=== PATIENT | female | born 1930 | race Caucasian/White ===

== ENCOUNTER 2018-06-08 08:33 | Day surgery (SDC) | payer OTHER ==
[~2018-06-08] VITALS: Ht 160 cm; Wt 69.5 kg
[~2018-06-08 08:33] MED LIST: ACEBUTCAFT PO; ACET325 PO; ALLO100; ALLO100 PO; AMLO5 PO; AMOCLA500; ASPI81EC; AZIT250 PO; Apap-Butalbita1 EACH PO; BISA10S PR; CALC.25 PO; CALCIUM +D PO; CIPR500 PO; CLIN300 PO; CODACE30; CVS DISPOSABLE399 ML PR; Citrate Of Mag300 ML PO; DONE10 PO; Dulcolax5 MG PO; FAMO20; FOSI10 PO; FURO40 PO; HYDACE5; HYDACE5 PO; HYDACE5325 PO; HYDMOR2 PO; HYDR1TAB94 PO; IRON150C PO; LEVFLO250 PO; LEVFLO500; LEVFLO500 PO; LISI5; LOVA40; LOVA40 PO; METO100; METO100 PO; METO100ER; METO25 PO; METO25ER PO; METO50; METR500; METR500 PO; MULVITMINE PO; Milk Of Ma400 MG/5 M PO; Multivitamin1 EAC1 PO; NAPR220; NAPR220 PO; NITR100CA PO; OMEP20ER; OMEP20ER PO; OXYACE5T PO; PANT40; PROACE100 PO; PROM25 PO; Prilosec Otc20 MG PO; RXCLIN PO; RXHYDMOR2 PO; RXOXYACE PO; RXPROACE PO; SIMV20 PO; SIMV40 PO; SPIR25; SULTRISS PO; TRAM50 PO; TRAZ50 PO; Ultram50 MG PO; Vitamin C100 M1 PO
[2018-06-08] MEDS ORDERED: LORA.5 PO (09:10)
[2018-06-08] MEDS ORDERED: MIRT15 PO (09:11)
[2018-06-08] MEDS ORDERED: Rena-Vite Tabl0.8 MG PO (09:13)
[2018-06-08] MEDS ORDERED: TRAZ50 PO (09:14)
[2018-06-08] MEDS ORDERED: FERRIC CITRATE210 MG PO (09:17)
[2018-06-08] MEDS ORDERED: GAVILAX17 GM PO (09:19)
--- NOTE | 2018-06-08 10:50 | NUR ---
PT WITH AGE-APPROPRIATE MOBILITY BUT [place] AND SOMEWHAT POOR HISTORIAN REGARDING OWN HEALTH. DOES NOT KNOW CURRENT MEDICATIONS OR DOSES. INFORMATION OBTAINED FROM ACCOMPANYING RECORDS.
--- NOTE | 2018-06-08 12:09 | NUR ---
PT AND FAMILY VERBALIZED UNDERSTANDING OF WRITTEN AND VERBAL D/C INST. IV REMOVED. PT TAKEN OUT OF THE HRT CENTER VIA W/C.
[2018-06-27] MEDS ORDERED: METO25 PO (10:26)
[2018-06-27] MEDS ORDERED: AURYXIA PO (10:27)
== END 2018-06-08 12:05 | disposition home or self-care (01) ==
LOC: MHTC 08:33
DX: I12.0 Hypertensive chronic kidney disease with stage 5 chronic kidney disease or end stage renal disease (principal); N18.6 End stage renal disease; Z99.2 Dependence on renal dialysis; E78.5 Hyperlipidemia, unspecified; I25.10 Atherosclerotic heart disease of native coronary artery without angina pectoris; Z88.0 Allergy status to penicillin; Z88.2 Allergy status to sulfonamides
CPT/HCPCS: 36010; 36581; 36590; 37246; 37248; 75827; 77001; 99152; C1725; C1750; C1769; J0690; J1644; J2250; J3010; J7040; Q9967

== ENCOUNTER 2018-06-08 18:08 | Emergency (ER) | payer OTHER ==
[~2018-06-08] VITALS: Ht 157.5 cm; Wt 56.7 kg
[~2018-06-08 18:08] MED LIST changes: +FERRIC CITRATE210 MG PO; +GAVILAX17 GM PO; +LORA.5 PO; +MIRT15 PO; +Rena-Vite Tabl0.8 MG PO
[2018-06-27] MEDS ORDERED: METO25 PO (10:26)
[2018-06-27] MEDS ORDERED: AURYXIA PO (10:27)
== END 2018-06-08 19:20 | disposition home or self-care (01) ==
LOC: ER 18:08
DX: T82.838A Hemorrhage due to vascular prosthetic devices, implants and grafts, initial encounter (principal); F03.90 Unspecified dementia, unspecified severity, without behavioral disturbance, psychotic disturbance, mood disturbance, and anxiety
CPT/HCPCS: 99283

== ENCOUNTER 2018-06-08 23:42 | Emergency (ER) | payer OTHER ==
[~2018-06-08] VITALS: Ht 160 cm; Wt 74.8 kg
[2018-06-27] MEDS ORDERED: METO25 PO (10:26)
[2018-06-27] MEDS ORDERED: AURYXIA PO (10:27)
== END 2018-06-09 02:03 | disposition home or self-care (01) ==
LOC: ER 23:42
DX: T82.838A Hemorrhage due to vascular prosthetic devices, implants and grafts, initial encounter (principal); Z88.0 Allergy status to penicillin; Z88.2 Allergy status to sulfonamides; Z88.8 Allergy status to other drugs, medicaments and biological substances; Z79.899 Other long term (current) drug therapy; I10 Essential (primary) hypertension; E78.5 Hyperlipidemia, unspecified; E03.9 Hypothyroidism, unspecified; F03.90 Unspecified dementia, unspecified severity, without behavioral disturbance, psychotic disturbance, mood disturbance, and anxiety
CPT/HCPCS: 99284

== ENCOUNTER 2018-06-27 15:02 | Day surgery (SDC) | payer OTHER ==
[~2018-06-27] VITALS: Ht 160 cm; Wt 70.4 kg
[~2018-06-27 15:02] MED LIST changes: +AURYXIA PO
--- NOTE | 2018-06-27 16:27 | NUR ---
REPORT GIVEN TO Barbara LOPEZ RN.
--- NOTE | 2018-06-29 08:27 | NUR ---
PROCEDURE COMPLETED WITHOUT KNOWN COMPLICATIONS. PT AWAKE AND APPROPRIATELY CONVERSIVE; ABLE TO STAND AND PIVOT TO OWN WHEELCHAIR WITH MINOR ASSISTANCE AND GUIDANCE (SAME BASELINE CONDITION). WAS INFORMED FROM GLORIA Anderson THAT TELEPHONE REPORT HAD BEEN CALLED TO PATIENT'S CARE FACILITY AND [facility] CALLED FOR TRANSPORTATION. IV DC'D WITH CANNULA TIP INTACT. FOLDED 2X2 GAUZE PLACED WITH COBAN WRAP. WHEELED PATIENT TO EXIT AND WAITED APPROX 5-10 MIN FOR ARRIVAL. PT WITHOUT ALTERATIONS TO CONSCIOUSNESS OR SPEECH. DISCHARGED.
== END 2018-06-27 18:00 | disposition home or self-care (01) ==
LOC: SURS 15:02 → MHTC 15:02
DX: T82.41XA Breakdown (mechanical) of vascular dialysis catheter, initial encounter (principal); N18.6 End stage renal disease; I12.0 Hypertensive chronic kidney disease with stage 5 chronic kidney disease or end stage renal disease
CPT/HCPCS: 36558; 36589; 76937; 99152; C1725; C1769; J1644; J2250; J2405; J3010; J7040

== ENCOUNTER → 2018-08-05 | Outpatient (CLI) | payer OTHER ==
[2018-08-05 19:38] LABS: Bun/Creatinine Ratio 10.6 (12.0-20.0); Calcium, Blood 10.4 mg/dL (8.5-10.1); Creatinine, Blood 6.03 mg/dL (0.40-1.00); Potassium, Blood 4.7 mmol/L (3.5-5.5)
[2018-08-05 20:45] LABS: Adenovirus Not Detected (NOT DETECT); Bordetella pertussis Not Detected (NOT DETECT); Chlamydophila pneumoniae Not Detected (NOT DETECT); Coronavirus 229E Not Detected (NOT DETECT); Coronavirus HKU1 Not Detected (NOT DETECT); Coronavirus NL63 Not Detected (NOT DETECT); Coronavirus OC43 Not Detected (NOT DETECT); Human Metapneumovirus Not Detected (NOT DETECT); Human Rhinovirus/Enterovirus Not Detected (NOT DETECT); Influenza A Not Detected (NOT DETECT); Influenza A/2009-H1 Not Detected (NOT DETECT); Influenza A/H1 Not Detected (NOT DETECT); Influenza A/H3 Detected (NOT DETECT); Influenza B Not Detected (NOT DETECT); Mycoplasma pneumoniae Not Detected (NOT DETECT); Parainfluenza Virus 1 Not Detected (NOT DETECT); Parainfluenza Virus 2 Not Detected (NOT DETECT); Parainfluenza Virus 3 Not Detected (NOT DETECT); Parainfluenza Virus 4 Not Detected (NOT DETECT); Respiratory Syncytial Virus Not Detected (NOT DETECT)
[2018-08-05 23:23] LABS: BASOPHILS ABSOLUTE AUTO 0.04 K/mm3 (0.00-0.23); BASOPHILS PERCENT AUTO 1 % (0-2); EOSINOPHILS ABSOLUTE AUTO 0.03 K/mm3 (0.00-0.68); EOSINOPHILS PERCENT AUTO 0 % (0-6); Hematocrit 34.1 % (33.0-51.0); Hemoglobin 10.9 g/dL (11.5-16.0); IMMATURE GRAN ABSOLUTE AUTO 0.03 K/mm3 (0.00-0.10); IMMATURE GRAN PERCENT AUTO 0 % (0-1); LYMPHOCYTES ABSOLUTE AUTO 1.24 K/mm3 (0.84-5.20); LYMPHOCYTES PERCENT AUTO 17 % (21-46); MONOCYTES PERCENT AUTO 25 % (4-13); Mean Corpuscular HGB 33.6 pg (26.0-34.0); Mean Corpuscular Volume 105 fL (80-100); Mean Platelet Volume 13.3 fL (9.1-12.4); NEUTROPHILS ABSOLUTE AUTO 4.05 K/mm3 (1.96-9.15); NEUTROPHILS PERCENT AUTO 56 % (41-73); Platelet Count 133 K/mm3 (150-400); RDW Coefficient Variation 13.3 % (11.7-14.2); RDW Standard Deviation 51.6 fL (35.1-46.3); Red Blood Cell Count 3.24 M/mm3 (3.80-5.20); White Blood Cell Count 7.19 K/mm3 (4.00-11.30)
== END | disposition home or self-care (01) ==
LOC: EDSTATUS 09:49 → LAB UVN 19:16
PROVIDERS: Family Medicine
DX: I12.9 Hypertensive chronic kidney disease with stage 1 through stage 4 chronic kidney disease, or unspecified chronic kidney disease (principal); N18.6 End stage renal disease; E87.5 Hyperkalemia; R50.9 Fever, unspecified; R05 Cough
CPT/HCPCS: 80048; 85025; 87486; 87581; 87633; 87798

== ENCOUNTER 2018-09-29 14:13 | Emergency (ER) | payer OTHER ==
[~2018-09-29] VITALS: Ht 167.6 cm; Wt 68.0 kg
[2018-09-29 15:09] LABS: BASOPHILS ABSOLUTE AUTO 0.04 K/mm3 (0.00-0.23); BASOPHILS PERCENT AUTO 1 % (0-2); EOSINOPHILS PERCENT AUTO 3 % (0-6); Hematocrit 36.9 % (33.0-51.0); IMMATURE GRAN ABSOLUTE AUTO 0.02 K/mm3 (0.00-0.10); IMMATURE GRAN PERCENT AUTO 0 % (0-1); LYMPHOCYTES PERCENT AUTO 21 % (21-46); MONOCYTES ABSOLUTE AUTO 0.71 K/mm3 (0.16-1.47); MONOCYTES PERCENT AUTO 9 % (4-13); Mean Corpuscular HGB 34.2 pg (26.0-34.0); Mean Corpuscular HGB Conc 32.5 g/dL (31.5-36.5); Mean Corpuscular Volume 105 fL (80-100); Mean Platelet Volume 12.9 fL (9.1-12.4); NEUTROPHILS ABSOLUTE AUTO 5.25 K/mm3 (1.96-9.15); NEUTROPHILS PERCENT AUTO 67 % (41-73); Platelet Count 212 K/mm3 (150-400); RDW Coefficient Variation 13.5 % (11.7-14.2); RDW Standard Deviation 52.2 fL (35.1-46.3); Red Blood Cell Count 3.51 M/mm3 (3.80-5.20); White Blood Cell Count 7.82 K/mm3 (4.00-11.30)
[2018-09-29 15:36] LABS: Albumin, Blood 3.5 g/dL (3.4-5.0); Albumin/Globulin Ratio 0.8 (0.8-1.8); Bilirubin, Total 0.3 mg/dL (0.1-1.0); Bun/Creatinine Ratio 9.5 (12.0-20.0); Calcium, Blood 10.3 mg/dL (8.5-10.1); Creatinine, Blood 7.54 mg/dL (0.40-1.00); Free Thyroxine 0.89 ng/dL (0.70-1.60); Globulin, Blood 4.6 g/dL (2.2-4.0); Potassium, Blood 4.9 mmol/L (3.5-5.5); Total Protein, Blood 8.1 g/dL (6.4-8.2)
[2018-09-29 15:39] LABS: Thyroid Stimulating Hormone 1.14 uIU/mL (0.360-4.800)
== END 2018-09-29 16:20 | disposition home or self-care (01) ==
LOC: ER 14:13
PROVIDERS: Physician Assistant
DX: F03.90 Unspecified dementia, unspecified severity, without behavioral disturbance, psychotic disturbance, mood disturbance, and anxiety (principal); Z88.0 Allergy status to penicillin; Z88.2 Allergy status to sulfonamides; Z88.8 Allergy status to other drugs, medicaments and biological substances; Z88.1 Allergy status to other antibiotic agents; Z79.899 Other long term (current) drug therapy; I10 Essential (primary) hypertension; E78.5 Hyperlipidemia, unspecified; E03.9 Hypothyroidism, unspecified
CPT/HCPCS: 36415; 36578; 76937; 80053; 84439; 84443; 85025; 99283; C1750; C1769; J1644; J7040

== ENCOUNTER 2018-10-12 06:16 | Inpatient (IN) | payer OTHER ==
[~2018-10-12] VITALS: Ht 167.6 cm; Wt 86.1 kg
[2018-10-12 07:02] LABS: Source, Urine Clean Catch
[2018-10-12] MEDS ORDERED: CITA10S PO (07:08)
[2018-10-12 07:15] LABS: Appearance, Urine Hazy (Clear); Bilirubin, Urine Neg (Neg); Blood, Urine 1+ (Neg); Color, Urine Yellow (P-Yellow); Glucose Qualitative, Urine Neg (Neg); Ketones, Urine Neg (Neg); Leukocyte Esterase, Urine 3+ (Neg); Nitrite, Urine Neg (Neg); Protein, Urine 3+ (Neg); Urobilinogen, Urine NORM (Normal); pH, Urine 6.5 (5.0-8.0)
[2018-10-12 07:22] LABS: Bacteria Many /hpf; Squamous Epithelial Cells Mod /hpf (Few); White Blood Cells, Urine 50-100 /hpf (0-5)
[2018-10-12 07:24] LABS: Transitional Epithelial Cells Rare /hpf (0-Rare)
[2018-10-12 07:29] LABS: BASOPHILS ABSOLUTE AUTO 0.05 K/mm3 (0.00-0.23); BASOPHILS PERCENT AUTO 0 % (0-2); EOSINOPHILS ABSOLUTE AUTO 0.02 K/mm3 (0.00-0.68); EOSINOPHILS PERCENT AUTO 0 % (0-6); Hematocrit 33.3 % (33.0-51.0); Hemoglobin 10.7 g/dL (11.5-16.0); IMMATURE GRAN ABSOLUTE AUTO 0.21 K/mm3 (0.00-0.10); IMMATURE GRAN PERCENT AUTO 1 % (0-1); LYMPHOCYTES ABSOLUTE AUTO 1.64 K/mm3 (0.84-5.20); LYMPHOCYTES PERCENT AUTO 9 % (21-46); MONOCYTES ABSOLUTE AUTO 2.07 K/mm3 (0.16-1.47); MONOCYTES PERCENT AUTO 11 % (4-13); Mean Corpuscular HGB 34.1 pg (26.0-34.0); Mean Corpuscular HGB Conc 32.1 g/dL (31.5-36.5); Mean Corpuscular Volume 106 fL (80-100); NEUTROPHILS ABSOLUTE AUTO 14.92 K/mm3 (1.96-9.15); NEUTROPHILS PERCENT AUTO 79 % (41-73); Platelet Count 162 K/mm3 (150-400); RDW Coefficient Variation 13.4 % (11.7-14.2); RDW Standard Deviation 52.6 fL (35.1-46.3); Red Blood Cell Count 3.14 M/mm3 (3.80-5.20); White Blood Cell Count 18.91 K/mm3 (4.00-11.30)
[2018-10-12] MEDS ORDERED: ONDA4ODT MM (07:30)
[2018-10-12] MEDS ORDERED: SEVEC800 (07:30)
[2018-10-12 07:35] LABS: Mean Platelet Volume 13.4 fL (9.1-12.4)
[2018-10-12 07:52] LABS: CPK Creatine Kinase 30 U/L (26-193); Troponin I 0.084 ng/mL (0.000-0.040)
[2018-10-12 07:58] LABS: Creatine Kinase MB <1.0 ng/mL (0.0-3.6); Creatine Kinase MB Index Unable to Calculate (0.0-4.0)
[2018-10-12 08:05] LABS: Albumin, Blood 3.1 g/dL (3.4-5.0); Albumin/Globulin Ratio 0.7 (0.8-1.8); Bilirubin, Total 0.6 mg/dL (0.1-1.0); Bun/Creatinine Ratio 10.8 (12.0-20.0); Calcium, Blood 10.4 mg/dL (8.5-10.1); Creatinine, Blood 8.35 mg/dL (0.40-1.00); Globulin, Blood 4.5 g/dL (2.2-4.0); Potassium, Blood 4.1 mmol/L (3.5-5.5); Total Protein, Blood 7.6 g/dL (6.4-8.2)
--- NOTE | 2018-10-12 10:32 | NUR ---
PT ADMITTED TO ICU 10 AT 0926. PT MUMBLING INCOHERENTLY; SOME PROFANITY. PT ABLE TO STATE NAME ONLY; THIS CONFUSION IS HER BASELINE. PT IS DROWSY AND KEEPS EYES CLOSED. PT IN W SEVERE SEPSIS. PT HYPOTENSIVE ON ADMIT. DR BRANDT CALLED IMMEDIATELY; NS BOLUS STARTED. RIGHT PERMACATH WAS ACESSED BY ABDIAZIZ RN; MELY RN IN ER. DR CALLAWAY AND DR MILLER CONSULTED AND CALLED BY INSPECTOR MACHINE CUT GLASS. DR CALLAWAY IN UNIT. PICC LINE ORDERED AND PLACED TO [facility]. 2ND L OF NS BOLUS ORDERED TO RUN ALONG SIDE CURRENT NS BOLUS. ABDIAZIZ RUCKER NOTIFIED THAT PICC LINE PLACED; ORDERS FROM HIM TO KEEP KVO TO PERMACATH WHEN NOT USING FOR BOLUS OR MEDS. LEVOPHED ORDERED AND STARTED AT 4MCG. PT BP SLOWLY RESPONDING TO FLUID BOLUSES. PT AFEBRILE. CRACKLES TO LLL ONLY, CLEAR OTHERWISE. SATS >93% ON RA. PT IN SINUS [place] W RATE 100-140 WITH WIDE QRS COMPLEX.
--- NOTE | 2018-10-12 11:03 | NUR ---
PT SHIVERING, EXT COOL AND PALE. WARM BLANKETS PLACED. TEMP 98.6. LEVOPHED INCREASED TO 6MCG, 2 L NS BOLUSING NOW. PT HAVING FREQUENT RUNS OF PVC'S.
--- NOTE | 2018-10-12 11:07 | NUR ---
PT CONT TO MUMBLE/RESTLESS. LEVOPHED INCREASED TO 10MCG FOR BP 60/36 W MAP 41.
--- NOTE | 2018-10-12 11:32 | NUR ---
LEVOPHED INCREASED TO 16MCG. 3RD LITER NS BOLUS INFUSING, DR CALLAWAY AT BEDSIDE.
--- NOTE | 2018-10-12 12:52 | NUR ---
PT WENT INTO VT W PULSE, CHANDRAKANT PUSHED AMIO PER ACLS PROTOCOL/DR CALLAWAY AT BEDSIDE. PT LOST CONSCIOUSNESS, PULSE NOT LOST. DR CALLAWAY WAS PREPARED TO INTUBATE WHEN PT ROUSED/ BECAME AWAKE. AMIO GTT STARTED AT 1MG/MIN. VASOPRESSIN STARTED. LEVOPHED AT 20MCG. 4TH LITER BOLUS STARTED. MALT LIQUORS SALES REPRESENTATIVE AT BEDSIDE. PT VERY RESTLESS AT THIS TIME, YELLING OUT HELP ME CONTINUOUSLY. EKG COMPLETED. DR VALLADARES CALLED AND NOTIFIED OF VT WELL.
[2018-10-12 16:56] LABS: Source, Urine Catheter
[2018-10-12 16:56] LABS: PCO2 Arterial 20.8 mmHg (35-45); PO2 Arterial 246 mmHg (80-100)
[2018-10-12 16:57] LABS: pH Blood Arterial 6.86 (7.35-7.45)
[2018-10-12 16:59] LABS: Bilirubin, Urine Neg (Neg); Blood, Urine 2+ (Neg); Glucose Qualitative, Urine Neg (Neg); Ketones, Urine Neg (Neg); Leukocyte Esterase, Urine 3+ (Neg); Nitrite, Urine Neg (Neg); Protein, Urine 3+ (Neg); Urobilinogen, Urine NORM (Normal)
[2018-10-12 17:11] LABS: Appearance, Urine Cloudy (Clear); Color, Urine Yellow (P-Yellow)
[2018-10-12 17:12] LABS: Bacteria Many /hpf; Squamous Epithelial Cells Few /hpf (Few); White Blood Cells, Urine 50-100 /hpf (0-5)
[2018-10-12 17:15] LABS: International Normalized Ratio 1.45; Prothrombin Time Results 14.9 Sec (9.7-11.5)
[2018-10-12 17:16] LABS: Albumin, Blood 1.6 g/dL (3.4-5.0); Anion Gap 23 mmol/L (6-16); Blood Urea Nitrogen 68 mg/dL (8-24); Bun/Creatinine Ratio 10.7 (12.0-20.0); Chloride, Blood 109 mmol/L (98-108); Creatinine, Blood 6.33 mg/dL (0.40-1.00); Glomerular Filtration Rate 7 (60-); Glucose, Blood 211 mg/dL (70-99); Phosphorus, Blood 6.5 mg/dL (2.5-4.9); Potassium, Blood 4.9 mmol/L (3.5-5.5); Sodium, Blood 136 mmol/L (136-145)
[2018-10-12 17:56] LABS: Calcium, Blood 7.7 mg/dL (8.5-10.1)
[2018-10-12 17:57] LABS: CO2, Blood 4 mmol/L (21-32)
--- NOTE | 2018-10-12 19:00 | NUR ---
ASSUMED CARE ASSUMED CARE OF PATIENT. REMAINS INTUBATED- AC 20, TV 400, PEEP 5, FIO2 60%. RR 24. WITHDRAWS TO NOXIOUS STIMULI. LEFTS HEAD OFF OF PILLOW SLIGHTLY. NO, 4MM, SLUGGISH. BILATERAL SOFT WRIST RESTRAINTS IN PLACE TO PREVENT SELF-EXTUBATION. 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 LEVOPHED, VASOPRESSIN, AMIODARONE, AND PHENYLEPHRINE CONTINUE PER ORDER- SEE ICU FLOWSHEET FOR TITRATIONS. IABP IN LEFT FEMORAL ARTERY- SEE IABP DOCUMENTATION. SWAN CATHETER IN RIGHT FEMORAL- PLACEMENT IS APPROXIMATELY 70CC. PICC TO DAVID. BICARB GTT INFUSING PER ORDER. OG TO LIS WITH SCANT DRAINAGE. KAUR PATENT AND DRAINING SCANT URINE. DIALYSIS CATHETER NOTED TO RIGHT UPPER CHEST. GREIGE MENDER HER TO START DIALYSIS. SEE SHIFT ASSESSMENT FOR FULL ASSESSMENT.
--- NOTE | 2018-10-12 19:33 | NUR ---
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 pt on ventilator and balloon pump. Family at awaiting update. Review of patient with nursing and physician. Met with family son was anxious to see his mother. Brought them into the room he kissed his mother and stated he needed to go home due to the stress. Review with them care plan and that they will get updates and be asked to make some difficult decisions. Dr. King also came and spoke with them about pt needs and inability to transfer pt due to beds and risks. She carefully reviewed prognosis. The decided to make her DNR and understand they may get a phone call if she worsens. Plan at this point is dialysis and stay the course and nicolle her care but if cardiac event allow a comfortable passing.
--- NOTE | 2018-10-12 19:59 | NUR ---
CALLED TO ICU FOR STAT HEMODIALYSIS ORDERED BY DR MILLER FOR INTUBATED PATIENT ADMITTED VIA ER AFTER FALL FROMN BED AT HER RESIDENCE. PT WITH SEVERE CARDIAC COMPROMISE AND UNDERWENT CARDIAC CATHETERIZATION WITH CONTRAST EARLIER THIS AFTERNOON.
--- NOTE | 2018-10-12 20:57 | NUR ---
PT'S SON CONSENTED TO HAVE PT GO TO [facility] FOR AGIOGRAM. PT ACCOMPANIED BY MYSELF T/O PROCEDURE. IN [facility] AT 1355. PT INTUBATED PRIOR TO [facility] BY DR CALLAWAY. INTUBATED AT 1323; 7.5F, 24 AT THE LIP. PROPOFOL AT 20MCG, LEVOPHED AT 20MCG, NEOSYNEPHRINE GTT AT 50, AMIO AT 1MG/MIN, VASOPRESSIN AT 2.4ML. DURING PROCEDURE ART LINE SHOWED SEVERE HYPOTENSION W MAP 30-40'S. LEVOPHED INCREASED TO 30MCG, AUGUSTIN INCREASED TO 200MCG, 1LITER BOLUS STARTED PER DR MAYERS. DR HERNANDEZ PRESENT WELL. BP IMPROVED W BOLUS AND IABP. AT END OF PROCEDURE LEVOPHED TITRATED DOWN TO 20MCG, AUGUSTIN DOWN TO 175MCG, PROPOFOL PLACED ON STANDBY. PT BEGAN TO AWAKEN AT END OF PROCEDURE; FENT 25MCG GIVEN PER DR MAYERS. PT BACK TO ICU AT 1600. IABP TO LEFT FEM ART; GAUZE SATURATED W BLOOD; AREA SOFT WITHOUT HEMATOMA, DRSG CHANGED WITHOUT A CONTINUATION OF BLEEDING. PULSES TO BILAT PT/DP VIA DOPPLER ONLY. POOR CAP REFILL AND DUSKY COLOR TO BLE. PULSES AND GROINS CHECKED Q 15MIN WITHOUT CHANGE. SWAN TO RIGHT FEM ART. SWAN LINE AT APPROX 75 FROM SHEATH. SECURED. SOME OOZING FROM SIGHT, GAUZE PLACED AT SIDES OF DRSG. UNABLE TO WEDGE SWAN FROM THE TIME THE SWAN WAS SET UP WHILE ATTEMPTING FIRST SET OF CARDIAC CALCS; DR CALLAWAY IN UNIT AND NOTIFIED. CHEST XRAY ORDERED. PER DR CALLAWAY SWAN PLACEMENT IN PULMONARY TRUNK; DR VALLADARES CALLED AND NOTIFIED. PER HIS ORDERS; MAY DISCONTINUE SWAN. THIS WAS DISCUSSED WITH LAYTON RN AND CHANDRAKANT RN. THERE WAS NOT DIRECT ORDER TO DC SWAN; THE EXACT ORDER WAS "IF YOU THINK THE SWAN IS GOING TO CAUSE AN ARRHYTHMIA YOU CAN DC IT" IABP AUGMENTED WELL, RANGING AROUND 100 WITH A VERY LOW AUGMENTED SYSTOLIC/DIASTOLIC PRESSURE. PT ALSO RAN A VERY LOW DIASTOLIC VIA ART LINE; RANGING IN TEEN'S. BOTH OF THESE WERE PRESENT IN [facility];OUTPATIENT THERAPIST AWARE OF BOTH. RP AND ABG CALLED INTO DR MILLER WITH ORDERS TO PUSH BICARB AND TO PROCEDE WITH HD; ABDIAZIZ W DIALYSIS NOTIFIED. BICARB GTT STARTED PER DR CALLAWAY. DR CALLAWAY SPOKE W PT'S SON AFTER OUTPATIENT THERAPIST CONFIRMED THAT PT WAS NOT A CANIDATE FOR TRANSFER; PT'S SON THEN MADE PT DNR. REPORT GIVEN TO LAYTON RUCKER. PT DID AWAKEN AT 1800, MOVING UPPER EXT, HEAD, AND GRIMACING; PT MEDICATED W ATIVAN AND FENT.
--- NOTE | 2018-10-12 22:00 | NUR ---
RESTLESSNESS/SEDATION PT WITH INCREASED RESTLESSNESS NOTED DESPITE ATIVAN AND FENTANYL DOSES. SEDATION NEEDS DISCUSSED WITH DR. NANCY NEGRETE TO RESTART PROPOFOL AT THIS TIME.
--- NOTE | 2018-10-12 23:00 | NUR ---
BLEEDING/HEPARIN GTT DR. CALLAWAY NOTIFIED OF COPIOUS BLEEDING FROM LEFT FEMORAL IABP SITE. ORDER RECEIVED TO HOLD HEPARIN AT THIS TIME AND CHECK PTT. MANUAL PRESSURE HELD AT SITE.
[2018-10-12 23:52] LABS: Hematocrit 29.9 % (33.0-51.0); Hemoglobin 9.2 g/dL (11.5-16.0)
--- NOTE | 2018-10-13 03:25 | NUR ---
BLEEDING/CALL TO MD DR. VALLADARES NOTIFIED OF CONTINUED COPIOUS BLEEDING @ IABP LEFT FEMORAL SITE. NEW ORDERS RECEIVED AT THIS TIME.
[2018-10-13 03:43] LABS: Hematocrit 25.3 % (33.0-51.0); Hemoglobin 7.9 g/dL (11.5-16.0); Mean Corpuscular HGB 34.3 pg (26.0-34.0); Mean Corpuscular HGB Conc 31.2 g/dL (31.5-36.5); Platelet Count 61 K/mm3 (150-400); RDW Coefficient Variation 13.9 % (11.7-14.2); RDW Standard Deviation 55.6 fL (35.1-46.3); White Blood Cell Count 28.18 K/mm3 (4.00-11.30)
[2018-10-13 03:45] LABS: Mean Corpuscular Volume 110 fL (80-100)
[2018-10-13 04:06] LABS: Alanine Aminotransfer (ALT/SGP 935 U/L (12-78); Albumin, Blood 1.8 g/dL (3.4-5.0); Alk Phos 58 U/L (50-136); Anion Gap 23 mmol/L (6-16); Bilirubin, Total 0.6 mg/dL (0.1-1.0); Blood Urea Nitrogen 41 mg/dL (8-24); Bun/Creatinine Ratio 9.4 (12.0-20.0); CO2, Blood 16 mmol/L (21-32); Calcium, Blood 6.9 mg/dL (8.5-10.1); Chloride, Blood 101 mmol/L (98-108); Creatinine, Blood 4.36 mg/dL (0.40-1.00); Glomerular Filtration Rate 10 (60-); Glucose, Blood 203 mg/dL (70-99); Magnesium, Blood 1.8 mg/dL (1.6-2.4); Phosphorus, Blood 3.8 mg/dL (2.5-4.9); Potassium, Blood 3.4 mmol/L (3.5-5.5); Sodium, Blood 140 mmol/L (136-145)
[2018-10-13 04:25] LABS: Aspartate Aminotrans (AST/SGOT 2749 U/L (12-37)
[2018-10-13 04:26] LABS: Albumin/Globulin Ratio 0.8 (0.8-1.8); Globulin, Blood 2.2 g/dL (2.2-4.0); Troponin I >200.000 ng/mL (0.000-0.040)
[2018-10-13 04:39] LABS: PO2 Arterial 140 mmHg (80-100); pH Blood Arterial 7.35 (7.35-7.45)
[2018-10-13 05:16] LABS: BAND PERCENT MAN 16 % (0-8); BASOPHILS PERCENT MAN 0 % (0-2); EOSINOPHILS PERCENT MAN 0 % (0-6); LYMPHOCYTES ABSOLUTE MAN 0.84 K/mm3 (0.84-5.20); LYMPHOCYTES PERCENT MAN 3 % (21-46); METAMYELOCYTE ABSOLUTE MAN 0.56 K/mm3 (0.00-0.00); METAMYELOCYTE PERCENT MAN 2 % (0-0); MONOCYTES ABSOLUTE MAN 0.56 K/mm3 (0.16-1.47); MONOCYTES PERCENT MAN 2 % (4-13); MYELOCYTE ABSOLUTE MAN 0.84 K/mm3 (0.00-0.00); MYELOCYTE PERCENT MAN 3 % (0-0); NEUTROPHILS ABSOLUTE MAN 25.36 K/mm3 (1.96-9.15); SEG NEUTROPHILS PERCENT MAN 74 % (41-73); TOTAL CELLS COUNTED 100
--- NOTE | 2018-10-13 06:45 | NUR ---
SHIFT SUMMARY REMAINS INTUBATED- AC 20, TV 400, PEEP 5, FIO2 60%. SEDATED WITH PROPOFOL @ 25MCG/KG/MIN AT THIS TIME. WITHDRAWS TO STIMULI. NO SPONTANEOUS MOVEMENT NOTED. NO, 4MM, SLUGGISH. IABP IN PLACE TO LEFT FEMORAL ARTERY. FEMSTOP IN PLACE D/T COPIOUS BLEEDING AT SITE. LEFT PEDAL PULSE IS 1+, FOOT IS PALE AND COOL. RIGHT PEDAL PULSE 2+, FOOT IS PALE AND WARM. SWAN CATHETER TO RIGHT GROIN. ALL LINES ZEROED DURING NOC. LEVOPHED INFUSED BETWEEN 20-25MCG/MIN DURING SHIFT- NOW AT 23MCG/MIN. PHENYLEPHRINE INFUSED BETWEEN 100-200MCG/MIN- NOW @ 125MCG/MIN. VASOPRESSIN @ 0.04UNITS/MIN. AMIODARONE INFUSING @ 0.5MG/MIN PER ORDER. BICARB GTT CONTINUES @ 100CC/HR. PT TO RECEIVE KCL 10mEq IVPB AND CALCIUM GLUCONATE 1AMP IVPB WHEN AVAILABLE FROM PHARMACY. OG TO LIS. KAUR PATENT AND DRAINING- 30CC URINE T/O SHIFT. DR. CALLAWAY IS AWARE OF DECREASED URINE OUTPUT. UPDATES GIVEN TO FAMILY X 2 DURING SHIFT. WILL REPORT TO DAY SHIFT RN WHEN AVAILABLE.
--- NOTE | 2018-10-13 10:05 | NUR ---
PT SEDATED ON PROPOFOL AT 25MCG FOR [facility]. PT HAS SWAN AND ART LINE TO RIGHT FEM ART/VEIN. SITE WITH MINIMAL OOZING. +2 PULSE TO RIGHT DP. EXTREMETIES VARY FROM COOL/DUSKY TO COOL/WITH INCREASED PINK. TOES VERY DUSKY. BODY OVERALL COOL, PALE, AND DUSKY PT IS IN SHOCK AND ON MULTIPLE PRESSORS AT HIGH DOSES. LEVOPHED AT 23MCG/MIN, VASOPRESSIN GTT AT 2.4ML/HR, NEOSYNEPHRINE GTT CURRENTLY AT 125MCG/MIN. DR VALLADARES IN AT 0830; DOBUTAMINE STARTED AT 0847. PT RESPONDED TO DOBUTAMINE W INCREASED PRESSURES FOR FIRST HOUR; DURING THAT TIME AUGUSTIN WAS TITRATED DOWN REQUESTED BY DR VALLADARES. AUGUSTIN TITRATED DOWN TO 75MCG. PRESSURES STARTED DROPPING AFTER ONE HOUR, AUGUSTIN NOW BACK UP TO 125MCG. PT HAS BALLOON PUMP TO LEFT FEM ART. PULSES VIA DOPPLER ONLY; THEY WERE YESTERDAY. LEFT GROIN CONT TO OOZ SLOWLY; PT TO RECEIVE 1 UNIT OF BLOOD W HD TODAY. HD PLANNED FOR 1300. IABP 1:1. AUGMENTING WELL BETWEEN 120-150. AUGMENTED PRESSURES SLIGHTLY IMPROVED FROM YESTERDAY. PT ON AMIO GTT AT 0.5MG/MIN, BICARB GTT AT 100CC/HR, HEPARIN STOPPED LAST NOCT; DR VALLADARES GIVEN COMPLETE UPDATE; INCLUDING DECISION TO LEAVE SWAN IN PLACE DISCUSED W DR CALLAWAY. IF FAMILY CHOOSES TO CONTINUE WITH PRESENT CARE, DR VALLADARES WILL ADVANCE SWAN INTO CORRECT POSITION. CHEST XRAY REPEAT TODAY; DR VALLADARES NOTIFIED THAT SWAN MAY HAVE MOVED SLIGHTLY MORE OUT OF PULM ART. PT HAD SMALL RUN OF BIGEMINY, NO OTHER INCREASE IN ECTOPY NOTED. BEAR HUGGER PLACED ON PT CORE TEMP 95.6. PT NOW 96.8. PT CHEWS ON ORAL CARE SX, NO SWALLOW, GAG, COUGH. PT BREATHING AT VENT SETTING OF 20. GRIMACES TO NOXIOUS STIMULI. MOVES RLE SLIGHTLY TO PAIN, NO MOVEMENT NOTED TO LLE. MOVES RLE TO PAIN PLACED ON LLE. MOVES ARMS SLIGHTLY. COLOSTOMY WITH BLOOD TINGED STOOL, STOMA RED/PURPLE.
--- NOTE | 2018-10-13 12:12 | NUR ---
PROPOFOL DECREASED TO 20MCG, LEVOPHED INCREASED TO 28MCG. DIASTOLIC REMAINS IN TEEN'S. HEART RATE 100. PT'S SON AND DAUGHTER GIVEN UPDATE OVER THE PHONE. SON PLANS TO COME IN TODAY.
--- NOTE | 2018-10-13 14:10 | NUR ---
HD STARTED AT 1323. ABDIAZIZ RN PLANS TO TAKE OFF 1L OVER 2 HRS. BLOOD AND ALBUMIN TRANSFUSING. BP DROPPED FURTHER AFTER HD STARTED W DIASTOLIC PRESSURES 7-10. AUGUSTIN INCREASED TO 300MCG, LEVOPHED INCREASED TO 30MCG. PROPOFOL AT 20MCG. PALLIATIVE CARE RN UPDATED. RIGHT AND LEFT GROIN SITES STABLE W MINIMAL OOZ TO LEFT GROIN. FEM STOP PRESSURE SLOWLY RELEASED OVER AN HR WITHOUT RE-BLEED.
--- NOTE | 2018-10-13 14:14 | NUR ---
DR CALLAWAY IN AT 1145 AND GIVEN COMPLETE UPDATE. WILL NOT REPOSITION OG TUBE OR USE IT AT THIS POINT. SEE NEW ORDERS.
[2018-10-13 15:24] LABS: Hematocrit 26.9 % (33.0-51.0); Hemoglobin 8.9 g/dL (11.5-16.0); Mean Corpuscular HGB 31.9 pg (26.0-34.0); Mean Corpuscular HGB Conc 33.1 g/dL (31.5-36.5); NRBC ABSOLUTE 0.03 K/mm3 (0.00-0.02); NRBC Auto 0.1 /100 WBC (0.0-0.2); RDW Coefficient Variation 16.4 % (11.7-14.2); RDW Standard Deviation 57.9 fL (35.1-46.3); Red Blood Cell Count 2.79 M/mm3 (3.80-5.20); White Blood Cell Count 24.15 K/mm3 (4.00-11.30)
--- NOTE | 2018-10-13 15:24 | NUR ---
PT'S SON/SHAHIDA AND GRANDSON ARE AT BEDSIDE. UPDATE GIVEN. FAMILY WOULD LIKE TO RECEIVE UPDATE FROM DR VALLADARES; DR VALLADARES CALLED, MESSAGE LEFT W STAFF. DR CALLAWAY INFORMED THAT FAMILY IS HERE WELL. HD COMPLETE 1200NET REMOVED. PRESSURE SLOWLY IMPROVING.
[2018-10-13 15:34] LABS: Mean Corpuscular Volume 96 fL (80-100); Mean Platelet Volume 13.7 fL (9.1-12.4)
[2018-10-13 15:35] LABS: Platelet Count 48 K/mm3 (150-400)
[2018-10-13 15:52] LABS: BAND PERCENT MAN 10 % (0-8); BASOPHILS ABSOLUTE MAN 0.24 K/mm3 (0.00-0.23); BASOPHILS PERCENT MAN 1 % (0-2); EOSINOPHILS PERCENT MAN 0 % (0-6); LYMPHOCYTES ABSOLUTE MAN 3.86 K/mm3 (0.84-5.20); LYMPHOCYTES PERCENT MAN 16 % (21-46); METAMYELOCYTE ABSOLUTE MAN 0.72 K/mm3 (0.00-0.00); METAMYELOCYTE PERCENT MAN 3 % (0-0); MONOCYTES PERCENT MAN 0 % (4-13); MYELOCYTE ABSOLUTE MAN 0.48 K/mm3 (0.00-0.00); MYELOCYTE PERCENT MAN 2 % (0-0); NEUTROPHILS ABSOLUTE MAN 18.83 K/mm3 (1.96-9.15); SEG NEUTROPHILS PERCENT MAN 68 % (41-73); TOTAL CELLS COUNTED 100
[2018-10-13 16:11] LABS: Vancomycin, Random 7.6 ug/mL
[2018-10-13 18:03] LABS: Hematocrit 22.6 % (33.0-51.0); Hemoglobin 7.6 g/dL (11.5-16.0)
[2018-10-13 18:15] LABS: Albumin, Blood 2.1 g/dL (3.4-5.0); Anion Gap 13 mmol/L (6-16); Blood Urea Nitrogen 25 mg/dL (8-24); Bun/Creatinine Ratio 9.3 (12.0-20.0); CO2, Blood 25 mmol/L (21-32); Calcium, Blood 7.2 mg/dL (8.5-10.1); Chloride, Blood 103 mmol/L (98-108); Creatinine, Blood 2.69 mg/dL (0.40-1.00); Glomerular Filtration Rate 18 (60-); Glucose, Blood 132 mg/dL (70-99); Magnesium, Blood 1.5 mg/dL (1.6-2.4); Phosphorus, Blood 2.7 mg/dL (2.5-4.9); Potassium, Blood 3.2 mmol/L (3.5-5.5); Sodium, Blood 141 mmol/L (136-145)
--- NOTE | 2018-10-13 19:47 | NUR ---
DR CALLAWAY SPOKE WITH PT'S SON AND GRANDSON AROUND 1600. PT'S SON STATED THAT THEY HAVE FAMILY COMING ON TUESDAY AND WERE HOPEFUL THAT SHE WOULD LIVE UNTIL THEN. THEY MAY LATER CONSIDER COMFORT CARE BUT NOT QUITE YET. DR CALLAWAY AND DR VALLADARES SPOKE. DR VALLADARES IN AROUND 1730 TO [facility]. SWAN DC'D, BUT CORDIS LEFT FOR ACCESS PER DR CALLAWAY REQUEST. STERILE CAP PLACED OVER CORDIS; FLUIDS INFUSING INTO SIDE PORT. ART LINE REMAINS IN RIGHT FEM ART. OOZING TO SITE HAS STOPPED, NEW DRSG PLACED. AXEL PLACED TO LEFT IABP SITE AND COVERED WITH NEW DRSG. FEM STOP PLACED W LIGHT PRESSURE D/T LIGHT OOZING AROUND SITE. PERIPHERAL PERFUSION SLIGHTLY IMPROVED AT END OF SHIFT. +2 PULSE TO RIGHT DP AND FAINT +1 PULSE TO LEFT DP. HEELS FLOATED, ARMS ELEVATED ON PILLOWS. PT LOG ROLLED; LINEN CHANGED, SKIN INTACT AND CLEANED. DIASTOLIC REMAINS LOW BUT HAS IMPROVED SINCE HD, RUNNING 20-30'S. MAP 70-80'S. DOBUTAMINE AT 5MCG, PROPOFOL AT 25MCG, LEVOPHED AT 30MCG, NEOSYNEPHRINE AT 175MCG, AMIO AT .5MG/MIN, VASOPRESSIN AT 2.4MG/HR, BICARB GTT DECREASED TO [address] MILLER. LABS CALLED TO DR MILLER AT 1700. PT TO RECEIVE 2 UNITS PRBC'S W HD IN AM. PT STIL GRIMACES WITH PAIN, ATIVAN AND FENT IV PRN GIVEN. PT'S TEMP INCREASED TO 99.3; BEAR HUGGER REMOVED. FULL REPORT GIVEN TO MICKY RUCKER.
--- NOTE | 2018-10-13 20:00 | NUR ---
ASSUMED CARE OF PT AT 1900. REPORT RECEIVED AT BEDSIDE. PT VENTED WITH AC 200, Tv 400, FIO2 60 %, PEEP 5. PT TOLERATING THIS WELL. MAINTAINS >92 PERCENT SATURATIONS WITH THIS SETTING. ALL DRIPS HAVE BEEN VERIFIED EACH ONE WITH OFFGOING RN. PT HAS BALLOON PUMP SETTING OF 1:1 WITH SOMEWHAT AUGMENTATION PRESSURES THAT WAS NOTED BY MD'S. SEE BALLOON PUMP STRIPS FOR PRESSURES. BOTH FEMORAL ACCESS SITES CHECKED. FEMSTOP WITH CONTACT PRESSURE OVER LEFT GROIN SITE TO CONTROL PREVIOUS OOZING. WILL EVALUATE TO HAVE FEMSTOP OFF THROUGH THE NIGHT. VERY FAINT PALPABLE PEDAL PULSES NOTED. WILL CONTINUE TO MONITOR. WILL REVIEW CHART AND PLAN OF CARE FOR THIS PT.
--- NOTE | 2018-10-13 22:47 | NUR ---
HAVE ATTEMPTED TO ADJUST PRESSORS TO SUPPORT DIALSTOLIC BLOOD PRESSURE AND REDUCE HEART RATE. UNFORTUNATELY THIS INNEFECTIVE AT THIS TIME. DR CALLAWAY COMES TO CHECK ON PT. NO NEW ORDERS RECEIVED. HAVE DISCUSSED WITH DR CALLAWAY NIGHT PLAN OF CARE FOR THIS PT. UPDATE GIVEN ON BLOOD PRESSURES AND PRESSOR DRIPS. WILL CONTINUE TO MONITOR PT.
--- NOTE | 2018-10-14 01:00 | NUR ---
PT CONTINUES TO DO WELL ON VENT. MAINTAINS SATURATIONS > 90 PERCENT. NO CHANGES FOR BALLOON PUMP FROM PREVIOUS ASSESSMENT. HAS MAINTAINED > 30 ML PER HOUR URINE OUTPUT. HAVE BEEN ATTEMPTING TO WEAN DOWN PRESSORS. GRADUAL PROCESS BEING MADE. WILL CONTINUE TO MONITOR.
[2018-10-14] MEDS ORDERED: CITA20 PO (03:13)
[2018-10-14 04:31] LABS: Hematocrit 21.9 % (33.0-51.0); Hemoglobin 7.4 g/dL (11.5-16.0); Mean Corpuscular HGB 32.3 pg (26.0-34.0); Mean Corpuscular HGB Conc 33.8 g/dL (31.5-36.5); Mean Corpuscular Volume 96 fL (80-100); NRBC ABSOLUTE 0.02 K/mm3 (0.00-0.02); NRBC Auto 0.1 /100 WBC (0.0-0.2); RDW Coefficient Variation 18.2 % (11.7-14.2); RDW Standard Deviation 63.7 fL (35.1-46.3); Red Blood Cell Count 2.29 M/mm3 (3.80-5.20); White Blood Cell Count 20.87 K/mm3 (4.00-11.30)
[2018-10-14 04:36] LABS: Platelet Count 47 K/mm3 (150-400)
[2018-10-14 04:53] LABS: Anion Gap 11 mmol/L (6-16); Blood Urea Nitrogen 29 mg/dL (8-24); Bun/Creatinine Ratio 9.9 (12.0-20.0); CO2, Blood 27 mmol/L (21-32); Calcium, Blood 7.6 mg/dL (8.5-10.1); Chloride, Blood 100 mmol/L (98-108); Creatinine, Blood 2.94 mg/dL (0.40-1.00); Glomerular Filtration Rate 16 (60-); Glucose, Blood 174 mg/dL (70-99); Magnesium, Blood 1.8 mg/dL (1.6-2.4); Phosphorus, Blood 2.5 mg/dL (2.5-4.9); Potassium, Blood 3.3 mmol/L (3.5-5.5); Sodium, Blood 138 mmol/L (136-145)
[2018-10-14 05:00] LABS: PCO2 Arterial 28.9 mmHg (35-45); PO2 Arterial 88.2 mmHg (80-100); pH Blood Arterial 7.54 (7.35-7.45)
[2018-10-14 05:11] LABS: BAND PERCENT MAN 15 % (0-8); BASOPHILS PERCENT MAN 0 % (0-2); EOSINOPHILS PERCENT MAN 1 % (0-6); LYMPHOCYTES PERCENT MAN 1 % (21-46); MONOCYTES ABSOLUTE MAN 0.41 K/mm3 (0.16-1.47); MONOCYTES PERCENT MAN 2 % (4-13); MYELOCYTE PERCENT MAN 1 % (0-0); NEUTROPHILS ABSOLUTE MAN 19.82 K/mm3 (1.96-9.15); SEG NEUTROPHILS PERCENT MAN 80 % (41-73); TOTAL CELLS COUNTED 100
--- NOTE | 2018-10-14 05:31 | NUR ---
CALL FROM DR MILLER. LAB VALUES READ OFF. ORDERS RECEIVED. PT TO RECEIVE TWO UNITS OF PRBC WITH DIALYSIS THIS MORNING. PT CONTINUES TO MAINTAIN >30 ML URINE OUTPUT. FEMORAL ACCESS SITE TO LEFT GROIN WITH NO NEW OOZING. FEMSTOP HAS BEEN EASED TO JUST GENTLE PRESSURE. WILL CONTINUE TO TRY AND HAVE FEMSTOP THIS MORNING. PT CONTINUES TO MAINTAIN >90 PERCENT SATURATIONS WITH VENT AT AC 20, Tv 400, FIO2 50, PEEP 5. CURRENTLY 96 PERCENT. WILL BRING FIO2 TO 45 PERCENT AND MONITOR.
--- NOTE | 2018-10-14 08:13 | NUR ---
Recieved report from Odilon RUCKER. Patient in reverse trendelenberg position approx 20 degrees. She is intubated and sedated. She has 7.5ET and is 24 cm at lips with vent settings: AC 20, TV 450, FiO2 45% and PEEP 5.0 with sats 93-96%. She is on Ballon pump that is accessed to left groin, marked sheath for any movement, see flow sheet for readings. She has right groin [place] cath site with injection ports left in place and has Propofol at 25 mcg/kg/min infusing and she is sedtaed and responds to oral care and pain opening eyes. She has PICC line in DAVID dressing intact and site WNL';s and is infusing: Dobutamine @ 7 mcg/kg/min, Vasopressin @ 0.04 units/min, NS @ TKO, Amiodarone @ 0.5mg/min, Noew-synephereine @ 175 mcg/min, Levophed @ 25 mcg/min, and K-Phos rider. She has 18Fr Temp nunez in place draining to gravity with small amonut yellow urine. She has colostomy LLQ with little green output liq stool. She also has Dialysis cath in RU chest.
--- NOTE | 2018-10-14 09:30 | NUR ---
Dr Connolly by to assess patient, no new current orders. Dialysis called and will be by at 1300 to start dialysis. No real changes in any gtt's ballon pump ands vent settings. See VBS flow sheet
--- NOTE | 2018-10-14 11:31 | NUR ---
INCREASED PATIENTS LEVOPHED TO 30 MCG/MIN. NO OTHER CHANGES.
--- NOTE | 2018-10-14 12:45 | NUR ---
Dr Boogie by and talked with him about ballon pump and adjusted to 1:2 and augmentation to 75% and have increase in BP and decrease in augmentation to be more equal to art line reading. No other changes in gtt, vent. Dr Cohen not sure if he is following or Dr Finnegan and will roberta her to see her opinion and let them both know.
--- NOTE | 2018-10-14 14:46 | NUR ---
No current ballon changed, vent setting changes or gtt changes. Dialysis is in room and gave albumin and is finishing the 2nd PRBC that needs to be given . VS better at 1:[address] Cohen has been back to re-eval patient and he has talked with Dr. Finnegan. No new neuro changes either, still responds to painful stimuli and oral care.
--- NOTE | 2018-10-14 15:55 | NUR ---
Patient continues on dialysis and is in PUFF mode and will be done soon. No changes currently and no new orders.
--- NOTE | 2018-10-14 16:47 | NUR ---
Dialysis is done and no real changes in VS, she had 2900 fluid pulled. No other changes in patients care. She still responds to painful stimuli and irritable witgh oral care. Bilateral groin sites C/D/I and minimal oozing.
[2018-10-14 17:11] LABS: Vancomycin, Random 14.4 ug/mL
--- NOTE | 2018-10-14 18:50 | NUR ---
Prepaering to give report to Khanh RN. Rt changed AC to 16 from 20 TV 4900, FiO2 45% and PEEP 5.0 and sats 92-96%. No changes in gtt's, ballon pump settings. I&O done and colostomy washed out.
--- NOTE | 2018-10-14 20:00 | NUR ---
ASSUMED CARE OF PT AT 1915. REPORT RECEIVED AT BEDSIDE. PT PRESENTS IN BED. VENTED. AC 16, Tv 400, FIO2 45%, PEEP 5. PT CONTINUES WITH BALLOON PUMP AT 1:[address] TO RIGHT GROIN WITH GOOD PLETH. BALLON PUMP INSERTION LEFT GROIN. DRESSING INTACT. BED TURN FUNCTION ON. 30 MINUTE HOLD FOR EACH LEFT, RIGHT, AND SUPINE. PT TOLERATING THIS WELL. PROPOFOL AT 25 MCG'S. WILL REVIEW CHART AND PLAN OF CARE FOR THIS PT.
--- NOTE | 2018-10-14 20:31 | NUR ---
Review of pt and plan of care with nursing. will review with mechanical fitter.
[2018-10-15 04:05] LABS: Hematocrit 27.1 % (33.0-51.0); Hemoglobin 9.3 g/dL (11.5-16.0)
[2018-10-15 04:23] LABS: Albumin, Blood 2.1 g/dL (3.4-5.0); Anion Gap 9 mmol/L (6-16); Blood Urea Nitrogen 21 mg/dL (8-24); Bun/Creatinine Ratio 8.6 (12.0-20.0); CO2, Blood 25 mmol/L (21-32); Calcium, Blood 7.7 mg/dL (8.5-10.1); Chloride, Blood 100 mmol/L (98-108); Creatinine, Blood 2.43 mg/dL (0.40-1.00); Glomerular Filtration Rate 20 (60-); Glucose, Blood 140 mg/dL (70-99); Magnesium, Blood 1.5 mg/dL (1.6-2.4); Phosphorus, Blood 3.5 mg/dL (2.5-4.9); Potassium, Blood 3.6 mmol/L (3.5-5.5); Sodium, Blood 134 mmol/L (136-145)
--- NOTE | 2018-10-15 06:30 | NUR ---
DR MILLER COMES IN TO SEE PT. ORDERS RECEIVED. WAS ABLE TO MAKE SOME ADJUSTMENTS TO PRESSORS THIS NIGHT TO TITRATE DOWNWARDS. WILL CONTINUE TO ASSESS ABILITY TO TITRATE FURTHER. BALLOON PUMP CONTINUES AT 1:2 RATIO. HAVE DONE COMPLETE BEDBATH WITH LINEN CHANGES THIS NIGHT. NO DROPS IN BLOOD PRESSURES OR ANY INCREASE IN ECTOPY. WILL CONTINUE TO MONITOR PT, AND WILL REPORT OFF TO ONCOMING RN.
--- NOTE | 2018-10-15 07:15 | NUR ---
Recieved report from Odilon RUCKER. Patient is supine in bed and using auto trn to 30 derees q30 minutes. She is intubated and sedated, ET 7.5 and 24cm at lips with vent settings AC 16, TV 400, FiO2 45% and PEEP 5.0 and sats 92-95%. She has [place] Cath in right groin, dressing intact and site WNL's with catheter out and pulled 10/13 and cordis left in place and is being used ans CL with Propofol at 25 mcg/kg/min and NS @ TKO. She has Ballon pum catheter in left groin dressing intact and site WNL's, EKG sensing and augmentation 75%, with 1:2 IAB freq. She has PICC line DAVID dressing intact and site WNL's and is infusing: Dobutamine 7mcg/kg/min, Vasopressin 0.04 units/min, Neosynepherine 100mcg/min, Levophed 25mcg/min and Amiodarone at 0.5mg/min. She withdrawls from painful stimuli and opens eyes with oral care. No other purposeful movement, pupils reactive to light, right more than left. She has 18Fr. Garay catheter draining to gravity yellow urine. She has colostomy RLQ with minimal dark green output.
--- NOTE | 2018-10-15 09:30 | NUR ---
mag and potassium riders infusing. Patientt has more frequent PVC's and talked with Dr. Boogie he added 1GM Mag and potassium was already being corrected. No other changes.
--- NOTE | 2018-10-15 11:30 | NUR ---
No significant changes in neuro and no prposeful movements, VSS. No changes in gtt's or vent settings, or ballon pump.
--- NOTE | 2018-10-15 13:30 | NUR ---
Labs drawen and called to Dr Rea prior to Dialysis and she is in room hooking patient up for treatment. No changes in gtt's, vent, or ballon pump. VSS with medication. No new neuro changes.
--- NOTE | 2018-10-15 13:35 | NUR ---
pt resting family stepped out plan is comfort care and titrate medications off.
[2018-10-15 14:15] LABS: Albumin, Blood 1.7 g/dL (3.4-5.0); Anion Gap 9 mmol/L (6-16); Blood Urea Nitrogen 19 mg/dL (8-24); Bun/Creatinine Ratio 10.9 (12.0-20.0); CO2, Blood 21 mmol/L (21-32); Chloride, Blood 96 mmol/L (98-108); Creatinine, Blood 1.75 mg/dL (0.40-1.00); Glomerular Filtration Rate 29 (60-); Glucose, Blood 405 mg/dL (70-99); Magnesium, Blood 1.6 mg/dL (1.6-2.4); Phosphorus, Blood 3.2 mg/dL (2.5-4.9); Potassium, Blood 3.6 mmol/L (3.5-5.5); Sodium, Blood 126 mmol/L (136-145)
--- NOTE | 2018-10-15 15:30 | NUR ---
Son and Grandson arrived and gave update and let Dr King know and she stated that she would give update. Dialysis was in room as well and gave them a quick update. patient continues with no purposeful extremity movement. Continue with no vent, gtt, or ballon pump changes. See flowsheet for VS and IABP numbers.
--- NOTE | 2018-10-15 16:56 | NUR ---
Famil;y left after getting Dr block and stated would be back tomorrow with rest of family. Dialysis just finished, she had spoke with Dr Rea and recieved dialysis instructions instead of PUFF, pulled 3600 in fluid off.
[2018-10-15 17:07] LABS: Vancomycin, Random 17.1 ug/mL
--- NOTE | 2018-10-15 19:00 | NUR ---
Continued care with patient with noc shift. Started bathing paient and aide came in to help, Changed all leads. No changes in gtt, vent or ballon pump.
--- NOTE | 2018-10-15 19:15 | NUR ---
Oral care done and finished cleaning patient. Noticed that art line was not reading righrt and after stripping down dressing noticed it was kinked, had Shanae RN try to help with re-zeroing and no success and call Dr King in and found that the cordis and art line was were both dislodged from tissue movement. Dr Connolly had us remove both lines and Sheryl RN held pressure for 4o minutes and placed tegaderm over site and was soft palpable and small amount of bruising at insertion site. Propofol was moved to PICC line and patient resedated. Clinimix stopped as not compatable with any other medication. Gave report to Comfort RUCKER, reviewed gtt and still no changes
--- NOTE | 2018-10-15 23:42 | NUR ---
START OF SHIFT: ASSUMED CARE OF PT AT APPRX 2119. REPORT FROM BERNARDO RUCKER. PT LYING SUPINE WITH HOB APPRX AT 20 DEGREES. PT VENTED: A/C 16, Vt 400, PEEPN 5, FiO2 50%. DIALYSIS PORT NOTED TO RIGHT CHEST. PT CONTINUED ON BALLOON PUMP ACCESSED THROUGH LEFT GROIN SITE. LEFT GROIN SITE WITH SCANT AMOUNT OF DRAINAGE UNDER TEGADERM WHICH HAS BEEN NORMAL FOR PT. PT WITH PICC TO DAVID INFUSING MANY PRESSORS. GTT REVIEWED WITH OFF GOING RN (SEE FLOW CHART FOR RATES). RIGHT GROIN SITE ASSESSED AFTER JUST HAVING ART LINE REMOVED AND WAS AND STILL IS WNL. ABD SOFT, BT DIFFICULT TO ASSESS C/ BALLOON PUMP. PT WITH COLOSTOMY DRAINING SMALL AMOUNT OF GREEN/BROWN LIQUID STOOL. KAUR CATHETER IN PLACE DRAINING SMALL AMOUNT CLEAR YELLOW URINE. PEDAL PULSES WITH PALPABLE PULSE TO RDP, DOPPLER ONLY TO LDP. SEE CHART FOR COMPLETE ASSESSMENT.
--- NOTE | 2018-10-15 23:52 | NUR ---
DAUGHTER UPDATED: CALL TAKEN FROM PT'S DAUGHTER YULISA FROM [place]. YULISA UPDATED. YULISA APOLOGIZED FOR NOT BEING ABLE TO TRAVEL DUE TO ILLNESS.
--- NOTE | 2018-10-16 01:27 | NUR ---
PT WITH NO NEW CHANGES T/O THIS SHIFT THUS FAR.
[2018-10-16 03:41] LABS: PCO2 Arterial 29.8 mmHg (35-45); PO2 Arterial 44.5 mmHg (80-100); pH Blood Arterial 7.49 (7.35-7.45)
--- NOTE | 2018-10-16 03:52 | NUR ---
RAQUEL PAGAN AT BEDSIDE PLACING FOREHEAD OXYMETER WITH R: TO CRITICAL ABG VALUE PO2 44.5. FiO2 RAISED TO 55%. CURRENT SATS 92%. WILL CONTINUE TO MONITOR.
[2018-10-16 03:58] LABS: Hematocrit 25.9 % (33.0-51.0); Hemoglobin 8.8 g/dL (11.5-16.0); Mean Corpuscular HGB 30.4 pg (26.0-34.0); NRBC ABSOLUTE 0.09 K/mm3 (0.00-0.02); NRBC Auto 0.3 /100 WBC (0.0-0.2); RDW Coefficient Variation 17.3 % (11.7-14.2); RDW Standard Deviation 56.2 fL (35.1-46.3); Red Blood Cell Count 2.89 M/mm3 (3.80-5.20); White Blood Cell Count 26.94 K/mm3 (4.00-11.30)
[2018-10-16 04:13] LABS: Albumin, Blood 2.2 g/dL (3.4-5.0); Anion Gap 9 mmol/L (6-16); Blood Urea Nitrogen 22 mg/dL (8-24); Bun/Creatinine Ratio 9.1 (12.0-20.0); CO2, Blood 22 mmol/L (21-32); Calcium, Blood 8.4 mg/dL (8.5-10.1); Chloride, Blood 100 mmol/L (98-108); Creatinine, Blood 2.42 mg/dL (0.40-1.00); Glomerular Filtration Rate 20 (60-); Glucose, Blood 136 mg/dL (70-99); Magnesium, Blood 1.8 mg/dL (1.6-2.4); Phosphorus, Blood 3.3 mg/dL (2.5-4.9); Potassium, Blood 3.8 mmol/L (3.5-5.5); Sodium, Blood 131 mmol/L (136-145)
[2018-10-16 04:16] LABS: Mean Corpuscular Volume 90 fL (80-100)
[2018-10-16 04:18] LABS: Platelet Count 35 K/mm3 (150-400)
[2018-10-16 05:33] LABS: BAND PERCENT MAN 9 % (0-8); BASOPHILS PERCENT MAN 0 % (0-2); EOSINOPHILS PERCENT MAN 0 % (0-6); LYMPHOCYTES PERCENT MAN 3 % (21-46); METAMYELOCYTE ABSOLUTE MAN 0.26 K/mm3 (0.00-0.00); METAMYELOCYTE PERCENT MAN 1 % (0-0); MONOCYTES PERCENT MAN 3 % (4-13); MYELOCYTE ABSOLUTE MAN 0.53 K/mm3 (0.00-0.00); MYELOCYTE PERCENT MAN 2 % (0-0); NEUTROPHILS ABSOLUTE MAN 24.51 K/mm3 (1.96-9.15); SEG NEUTROPHILS PERCENT MAN 82 % (41-73); TOTAL CELLS COUNTED 100
--- NOTE | 2018-10-16 06:05 | NUR ---
DR. MILLER TO BEDSIDE AND WAS UPDATED. NEW ORDER TO GIVE ONE UNIT PRBC DURING DIALYSIS.
--- NOTE | 2018-10-16 06:19 | NUR ---
PT WITH NO ACUTE CHANGES T/O NOC. VENT: A/C 16, Vt 400, PEEP 5, FiO2 55%. BALLOON PUMP CONTINUING CURRENT BP 100/62, HR 106, 30% AUGMENTATION (122). RIGHT GROIN SITE WEEPING SLIGHTLY BUT NO SWELLING AND IS SOFT TO PALP WITH SLIGHT BRUISING ONLY AROUND PUNCTURE SITE. LEFT GROIN SITE WITH NO MORE DRAINAGE THAN WHEN NOTED DURING INITIAL ASSESSMENT. CATHETER TUBING REMAINS PATENT AND WAS FLUSHED C/ APPRX 20cc NS Q2-3 HOURS T/O SHIFT. DR. MILLER TO BEDSIDE THIS AM AND GIVEN LAB VALUES WITH NEW ORDER TO TRANSFUSE ONE UNIT OF PRBC WITH DIALYSIS. SEE FLOW CHARTS FOR COMPLETE VITALS AND GTT RATES.
--- NOTE | 2018-10-16 07:51 | NUR ---
0700-assumed care of pt. Pt is sedated with Propofol @ 25mcg/kg/min. Pt is on neosinephrine @ 125mcg/kg/min, Dobutamine drip @ 7 mcg/kg/min, Vasopressin @ 0.04 units/hr, Levophed @ 25 mcg/kg/min, Amiodarone @ 0.5 mg/min. Pt does not open eyes to voice and not following commands but does opens eyes with oral suctioning. NO. Pt is on Balloon Pump with 1:2 settings. Afebrile. 0730-Pt is overbreathing the ventilator @ 35-40 times a minute. Increased Propofol drip to 30mcg/kg/min. 0755-Dr. Van at bedside, updated him of pt's status.
--- NOTE | 2018-10-16 10:33 | NUR ---
PT'S DAUGHTER YULISA CALLED FOR UPDATES. UPDATED HER OF PT'S STATUS. SHE STATED HER SISTER NAOMI WILL COME TODAY FROM [place]. DIALYSIS STILL GOING ON AT THIS TIME. PT IS RECEIVING 1 UNIT OF PRBC WHILE ON DIALYSIS.
[2018-10-16 12:14] LABS: Vancomycin, Random 15.9 ug/mL
--- NOTE | 2018-10-16 13:17 | NUR ---
1245-DR. VALLADARES CAME BY TO PULL THE IABP. HE HAD TALKED TO PT'S SON SHAHIDA BEFORE BEGINNING TO PULL THE IABP CATH. WHEN HE PULLED THE CATHETER THERE WAS RESISTANCE THAT WAS NOTED AND THE CATHETER WAS LEFT IN THE SHEATH. THE CATHETER WAS CLAMPED THEN IT WAS SHORTENED BY [facility] TECH PER DR. VALLADARES'S VERBAL ORDER. CURRENTLY FEMORAL SHEATH STILL IN PLACE WITH ABOUT A LITTLE OVER AN INCH OF IABP CATH STICKING OUT FROM THE FEM SHEATH WHICH IS CLAMPED AND SECURED WITH A HEMOSTAT AND TEGADERM DRESSING IN PLACE.
--- NOTE | 2018-10-16 13:28 | NUR ---
PT'S FAMILY AT BEDSIDE AT THIS TIME. RICCARDO, PALLIATIVE RN AT BEDSIDE AND TALKED TO THEM REGARDING PT'S CONDITION.
--- NOTE | 2018-10-16 15:21 | NUR ---
1500-PT'S FAMILY HAS DECIDED TO MAKE PT COMFORT CARE. RICCARDO PALLIATIVE RN HAS NOTIFIED DR. BRANDT REGARDING PT'S FAMILY'S WISHES. SHE RECEIVED ORDERS FROM DR. BRANDT FOR COMFORT CARE. 1518-PT WAS PREMEDICATED FOR COMFORT BEFORE EXTUBATION. PT IS EXTUBATED AT THIS TIME. PT'S DAUGHTER NAOMI AT BEDSIDE.
--- NOTE | 2018-10-16 15:40 | NUR ---
PT @ 1538. NO HEARTBEAT, NO PULSES NO RESPIRATIONS NOTED. PT'S DAUGHTER NAOMI AT BEDSIDE WELL RICCARDO, PALLIATIVE RN.
--- NOTE | 2018-10-16 15:45 | NUR ---
ORGAN DONATION, ATTENDING PHYSICIAN AND CONSULTANTS WERE NOTIFIED REGARDING PT'S TIME OF
--- NOTE | 2018-10-16 18:30 | NUR ---
PT'S BODY WAS RELEASED TO [facility].
--- NOTE | 2018-10-16 19:35 | NUR ---
care wtihdrawn and stayed with daughter as son could not tolerating staying. pt passed gently. Pt was unable to speak but opened eyes, medicated for comfort and post pressor stress and risk for angina. Advised son of patient passing supportive time with daughter. and assistnace with funneral planning.
== END 2018-10-16 15:38 | DRG 853 ==
LOC: ER 06:16 → ICUW 08:48
PROVIDERS: Emergency Medicine; Internal Medicine Critical Care Medicine; Internal Medicine Interventional Cardiology; Internal Medicine Nephrology; ADMIT Internal Medicine
PROC: 4A023N7 Measurement of Cardiac Sampling and Pressure, Left Heart, Percutaneous Approach (ICD-10-PCS; principal; 2018-10-12)
PROC: 5A02210 Assistance with Cardiac Output using Balloon Pump, Continuous (ICD-10-PCS; 2018-10-12)
PROC: B211YZZ Fluoroscopy of Multiple Coronary Arteries using Other Contrast (ICD-10-PCS; 2018-10-12)
PROC: 0BH17EZ Insertion of Endotracheal Airway into Trachea, Via Natural or Artificial Opening (ICD-10-PCS; 2018-10-12)
PROC: 5A1955Z Respiratory Ventilation, Greater than 96 Consecutive Hours (ICD-10-PCS; 2018-10-12)
PROC: 02HV33Z Insertion of Infusion Device into Superior Vena Cava, Percutaneous Approach (ICD-10-PCS; 2018-10-12)
PROC: 3E033XZ Introduction of Vasopressor into Peripheral Vein, Percutaneous Approach (ICD-10-PCS; 2018-10-12)
PROC: 5A1D70Z Performance of Urinary Filtration, Intermittent, Less than 6 Hours Per Day (ICD-10-PCS; 2018-10-14)
PROC: 5A1D70Z Performance of Urinary Filtration, Intermittent, Less than 6 Hours Per Day (ICD-10-PCS; 2018-10-15)
PROC: 5A1D70Z Performance of Urinary Filtration, Intermittent, Less than 6 Hours Per Day (ICD-10-PCS; 2018-10-16)
DX: A41.02 Sepsis due to Methicillin resistant Staphylococcus aureus (principal); R65.21 Severe sepsis with septic shock; I50.21 Acute systolic (congestive) heart failure; N18.6 End stage renal disease; D65 Disseminated intravascular coagulation [defibrination syndrome]; I13.2 Hypertensive heart and chronic kidney disease with heart failure and with stage 5 chronic kidney disease, or end stage renal disease; I47.2 Ventricular tachycardia; N39.0 Urinary tract infection, site not specified; N25.81 Secondary hyperparathyroidism of renal origin; Z99.2 Dependence on renal dialysis; E87.6 Hypokalemia; E83.42 Hypomagnesemia; R41.89 Other symptoms and signs involving cognitive functions and awareness; R57.0 Cardiogenic shock; F03.90 Unspecified dementia, unspecified severity, without behavioral disturbance, psychotic disturbance, mood disturbance, and anxiety; F06.8 Other specified mental disorders due to known physiological condition; D63.1 Anemia in chronic kidney disease; I95.9 Hypotension, unspecified; E03.9 Hypothyroidism, unspecified; I25.10 Atherosclerotic heart disease of native coronary artery without angina pectoris
CPT/HCPCS: 31720; 33967; 36415; 36430; 36569; 36600; 70450; 71045; 73502; 80048; 80053; 80069; 80202; 81001; 82330; 82550; 82553; 82803; 83605; 83690; 83735; 83880; 84100; 84484; 85014; 85018; 85025; 85347; 85610; 85730; 86850; 86900; 86901; 86923; 87040; 87070; 87077; 87086; 87147; 87186; 87205; 93005; 93010; 93306; 93460; 94002; 94003; 96361; 96365; 96368; 96375; 99152; 99153; 99285-25; C1751; C1769; C1894; C9113; J0282; J0610; J0881; J1250; J1644; J1956; J2060; J2250; J2270; J2370; J2405; J2704; J3010; J3370; J3475; J3480; J7030; J7040; J7060; J7070; J7131; P9016; P9046; P9612; Q9967